=== PATIENT | male | born 1985 | race Caucasian/White ===

== ENCOUNTER 2016-10-05 08:48 | Emergency (ER) | payer OTHER ==
[2016-10-05 08:54] VITALS: BP 127/80; BMI 32.5
[2016-10-05] MEDS ORDERED: ZOFRAN INJ 4 MG VIAL IVP ONE (09:04)
[2016-10-05] MEDS ORDERED: TORADOL 30 MG VIAL IVP ONE (09:04)
[2016-10-05] MEDS ORDERED: NS 1000 ML 1,000 ML IV ONE (09:04)
--- NOTE | 2016-10-05 09:06 | DR.ABDMALE ---
HPI - Time seen Time seen: 09:00 - PCP Primary Care Physician: concepción langston - HPI comment HPI Comment: PAIN GETTING WORSE. ASSOCIATED WITH NAUSEA. - Complaint Chief Complaint Doctors Comments: RIGHT SIDED ABDOMINAL PAIN TIMES SEVERAL HOURS. Chief Complaint:: PT C/O RIGHT LOWER QUAD PAIN THAT STARTED AT 0200 AND GOT WORSE AT 0530,,, Self Treatment fo Chief Complaint: PT HAS HX RENAL STONES AND HE STATES THAT HE PASSED OUT .. - Reviewed Nurses Notes Review: Yes - Mode of arrival Mode of Arrival: Wheelchair - Timing Onset of Chief Complaint: 10/04/16 Came on: Suddenly - Duration Duration: Constant Duration: Hours - Location Location: [facility] - Severity Severity: Moderate - Quality Quality: Sharp - Context Onset: Suddenly History of: Urolithiasis - Modifying factors Worsening Factors: Nothing Improving Factors: Nothing - Associated signs and symptoms Associated Signs and Symptoms: Nausea, Vomiting PMH - PMH Past Medical History: No Past Surgical History: No - Family History History of Family Medical Conditions: Yes Family Medical History: Diabetes Mellitus, Cancer, Coronary Artery Disease, Heart Failure, Hypertension - Social History Does patient currently use any type of tobacco product: No Have you used tobacco products in the last 12 months: No Type of Tobacco Use: None Does any household member use tobacco: No Alcohol Use: Rarely Do you use any recreational Drugs:: No Lives With: Family Lives Where: Home - infectious screening In the last 2 months have you had wt loss of >10#?: NO Have you had fever, night sweats or hemotysis?: No Have you traveled outside the country in the last 6 months?: No Isolation: Standard ROS - Review of Systems Constitutional: No Symptoms Reported Eyes: No Symptoms Reported ENTM: No Symptoms Reported Respiratoy: No Symptoms Reported Gastrointestinal/Abdominal: Abdominal Pain, Nausea, Vomiting Genitourinary: No Symptoms Reported Neurological: Other (LT FLANK PAIN) Musculoskeletal: No Symptoms Reported Integumentary: No Symptoms Reported Hematologic/Lymphatic: No Symptoms Reported Endocrine: No Symptoms Reported All Other Systems: Reviewed and Negative PE - Vital Signs Vital Signs: Temp Pulse Resp BP BP BP BP 10/05/16 08:51 97.5 F L 70 18 127/80 10/20/15 04:40 108/50 04/08/14 02:06 120/65 123/69 133/77 Pulse Ox 10/05/16 08:51 100 10/20/15 04:40 04/08/14 02:06 - General Limitations: No Limitations General Appearance: Alert - Head Head Exam: Normal Inspection - Eyes Eye exam: Normal Appearance - ENT ENT Exam: Normal External Ear Exam - Neck Neck Exam: Normal Inspection - Chest Chest Inspection: Symmetric Chest Wall Rise - Respiratory Respiratory Exam: Normal Lung Sounds Bilat Respiratory Exam: Bilateral Clear to Auscultation - Cardiovascular Cardiovascular Exam: Regular Rate, Normal Rhythm, Normal Heart Sounds - Abdominal Exam Abdominal Exam: Normal Inspection - Rectal Rectal Exam: Deferred - Back Back Exam: Normal Inspection - Extremeties Extremities Exam: Normal Inspection - Exam: Male: Deferred - Neurologic Neurological Exam: Alert, Oriented X3 - Skin Skin Exam: Normal Color MDM - Additional Information Obtained From Additional information provided by: Family - Differential Diagnosis Differential Diagnosis: Urinary obstruction, Urinary tract infection, Urolithiasis Course - Treatment Treatment: SEE ORDERS. PAIN MED AND IVPB NS IN ED. - Education/Counseling Education/Counseling: Patient, Family, Education Educated On: Treatment, Diagnosis, Needs for Follow Up ROR - Labs Reviewed Laboratory Results Reviewed?: Yes Result Diagrams: 10/05/16 09:13 10/05/16 09:13 Laboratory: WBC 7.2 X10^3/uL (3.6-10.0) 10/05/16 09:13 RBC 4.75 X10^6/uL (4.7-6.0) 10/05/16 09:13 Hgb 14.7 g/dL (13.5-18.0) 10/05/16 09:13 Hct 41.7 % (42.0-54.0) L 10/05/16 09:13 MCV 87.8 fL (80.0-100.0) 10/05/16 09:13 MCH 31.0 pg (27.0-34.0) 10/05/16 09:13 MCHC 35.3 g/dL (33.0-35.0) H 10/05/16 09:13 RDW 12.8 % (11.6-16.5) 10/05/16 09:13 Plt Count 232 X10^3/uL (150.0-450.0) 10/05/16 09:13 MPV 8.1 fL (7.4-11.0) 10/05/16 09:13 Neut % 71.2 % (42.0-75.0) 10/05/16 09:13 Lymph % 20.0 % (21.0-51.0) L 10/05/16 09:13 [place] % 6.5 % (0.0-13.0) 10/05/16 09:13 Eos % 1.5 % (0.9-2.9) 10/05/16 09:13 Baso % 0.8 % (0.2-1.0) 10/05/16 09:13 Neut # 5.2 x10^3/uL (2.2-4.8) H 10/05/16 09:13 Lymph # 1.4 X10^3/uL (1.3-2.9) 10/05/16 09:13 [place] # 0.5 x10^3/uL (0.3-0.8) 10/05/16 09:13 Eos # 0.1 x10^3/uL (0.0-0.2) 10/05/16 09:13 Baso # 0.1 X10^3/uL (0.0-0.1) 10/05/16 09:13 Absolute Nucleated RBC 0.1 /100WBC 10/05/16 09:13 Sodium 140 mmol/L (136-145) 10/05/16 09:13 Corrected Sodium 140 mmol/L (136-145) 10/05/16 09:13 Potassium 4.1 mmol/L (3.5-5.1) 10/05/16 09:13 Chloride 106 mmol/L (98-107) 10/05/16 09:13 Carbon Dioxide 28.2 mmol/L (21-32) 10/05/16 09:13 BUN 21 mg/dL (7-18) H 10/05/16 09:13 Creatinine 1.24 mg/dL (0.70-1.30) 10/05/16 09:13 Est GFR (MDRD) Af Amer > 60 (>60) 10/05/16 09:13 Est GFR (MDRD) Non-Af > 60 (>60) 10/05/16 09:13 Glucose 114 mg/dL (65-99) H 10/05/16 09:13 Calcium 8.5 mg/dL (8.5-10.1) 10/05/16 09:13 Corrected Calcium TNP 10/05/16 09:13 Total Bilirubin 0.40 mg/dL (0.2-1.0) 10/05/16 09:13 AST 25 Units/L (15-37) 10/05/16 09:13 ALT 59 Units/L (12-78) 10/05/16 09:13 Alkaline Phosphatase 46 Units/L (46-116) 10/05/16 09:13 Total Protein 7.3 g/dL (6.4-8.2) 10/05/16 09:13 Albumin 3.9 g/dL (3.4-5.0) 10/05/16 09:13 Globulin 3.4 g/dL (2.5-4.5) 10/05/16 09:13 Albumin/Globulin Ratio 1.1 Ratio (1.1-2.1) 10/05/16 09:13 Specimen Type Clean catch urine 10/05/16 09:05 Urine Color Yellow (YELLOW) 10/05/16 09:05 Urine Appearance Hazy (CLEAR) 10/05/16 09:05 Urine pH 6.0 (5.0 - 8.0) 10/05/16 09:05 Ur Specific [place] 1.020 (1.000-1.030) 10/05/16 09:05 Urine Protein 1+ (NEGATIVE) 10/05/16 09:05 Urine Glucose (UA) Negative (NEGATIVE) 10/05/16 09:05 Urine Ketones Negative (NEGATIVE) 10/05/16 09:05 Urine Occult Blood 5+ (NEGATIVE) 10/05/16 09:05 Urine Nitrite Negative (NEGATIVE) 10/05/16 09:05 Urine Bilirubin Negative (NEGATIVE) 10/05/16 09:05 Urine Urobilinogen Normal (NORMAL) 10/05/16 09:05 Ur Leukocyte Esterase Negative (NEGATIVE) 10/05/16 09:05 Urine RBC 11-20 /HPF (NEGATIVE) 10/05/16 09:05 Urine WBC 0-2 /HPF (NEGATIVE) 10/05/16 09:05 Ur Squamous Epith Cells Negative /HPF (NEGATIVE) 10/05/16 09:05 Urine Bacteria Trace /HPF (NEGATIVE) 10/05/16 09:05 Urine Mucus Few /HPF (NEGATIVE) 10/05/16 09:05 Ur Culture Indicated? No/not indicated 10/05/16 09:05 - XRAY XRAY Findings: REPORT DISCUSS WITH PATIENT. - Diagnosis Discharge Problem: Kidney stone on right side, Abdominal pain - Discharge Plan Disposition: HOME, SELF-CARE Condition: Stable Prescriptions: Hydrocodone-Acet 5 mg/325 mg [[place] 5/325 mg Tab] 1 tab PO Q6H PRN #15 tab PRN Reason: Pain Ketorolac Tromethamine [Toradol Tab] 10 mg PO Q8H PRN #15 tab PRN Reason: Pain Tamsulosin HCl [Flomax] 0.4 mg PO DAILY #10 cap - Follow ups/Referrals Follow ups/Referrals: MARYANN LANGSTON [Primary Care Provider] - 2 days - Instructions Instructions: Kidney Stones, [id number], Abdominal Pain, Adult, [facility]-vi-Afdi Additional Instructions: RETURN TO ED IF WORSE.
[2016-10-05] MEDS ORDERED: ZOFRAN INJ 4 MG VIAL ONE (09:22)
[2016-10-05] MEDS ORDERED: NS 1000 ML 1,000 ML ONE (09:22)
[2016-10-05] MEDS ORDERED: TORADOL 30 MG VIAL ONE (09:23)
[2016-10-05 09:26] LABS: BILIRUBIN,URINE NEGATIVE (NEGATIVE); BLOOD/HEMOGLOBIN,URINE 5+ (NEGATIVE); GLUCOSE, URINE NEGATIVE (NEGATIVE); KETONES,URINE NEGATIVE (NEGATIVE); LEUKOCYTE ESTERASE ,URINE NEGATIVE (NEGATIVE); NITRITES,URINE NEGATIVE (NEGATIVE); PROTEIN,URINE 1+ (NEGATIVE); UROBILINOGEN,URINE NORMAL (NORMAL)
[2016-10-05 09:27] LABS: BASOPHILS # (AUTO) 0.1 X10^3/uL (0.0-0.1); BASOPHILS % (AUTO) 0.8 % (0.2-1.0); EOSINOPHILS # (AUTO) 0.1 x10^3/uL (0.0-0.2); EOSINOPHILS % (AUTO) 1.5 % (0.9-2.9); HEMATOCRIT 41.7 % (42.0-54.0); HEMOGLOBIN 14.7 g/dL (13.5-18.0); LYMPHOCYTES # (AUTO) 1.4 X10^3/uL (1.3-2.9); MEAN CORPUSCULAR HGB CONC 35.3 g/dL (33.0-35.0); MEAN CORPUSCULAR VOLUME 87.8 fL (80.0-100.0); MEAN PLATELET VOLUME 8.1 fL (7.4-11.0); MONOCYTES # (AUTO) 0.5 x10^3/uL (0.3-0.8); MONOCYTES % (AUTO) 6.5 % (0.0-13.0); NEUTROPHILS # (AUTO) 5.2 x10^3/uL (2.2-4.8); NEUTROPHILS % (AUTO) 71.2 % (42.0-75.0); PLATELET COUNT 232 X10^3/uL (150.0-450.0); RED BLOOD COUNT 4.75 X10^6/uL (4.7-6.0); RED CELL DISTRIBUTION WIDTH 12.8 % (11.6-16.5); WHITE BLOOD COUNT 7.2 X10^3/uL (3.6-10.0)
[2016-10-05 09:33] LABS: APPEARANCE,URINE HAZY (CLEAR); BACTERIA,URINE TRACE /HPF (NEGATIVE); COLOR,URINE YELLOW (YELLOW); MUCUS,URINE FEW /HPF (NEGATIVE); SQUAMOUS EPITHELIAL CELL,UR NEGATIVE /HPF (NEGATIVE)
[2016-10-05 09:35] LABS: ALANINE AMINOTRANSFERASE 59 Units/L (12-78); ALBUMIN 3.9 g/dL (3.4-5.0); ALKALINE PHOSPHATASE 46 Units/L (46-116); ASPARTATE AMINO TRANSFERASE 25 Units/L (15-37); BLOOD UREA NITROGEN 21 mg/dL (7-18); CALCIUM 8.5 mg/dL (8.5-10.1); CARBON DIOXIDE 28.2 mmol/L (21-32); CHLORIDE 106 mmol/L (98-107); COR NA(FOR HYPERGLY) 140 mmol/L (136-145); CREATININE 1.24 mg/dL (0.70-1.30); GLUCOSE 114 mg/dL (65-99); SODIUM 140 mmol/L (136-145); TOTAL PROTEIN 7.3 g/dL (6.4-8.2); eGFR BLACK RACES > 60 (>60); eGFR NON BLACK RACES > 60 (>60)
--- NOTE | 2016-10-05 11:30 | CT ---
CT abdomen and pelvis without contrast Indication: Abdominal pain, history of kidney stones Technique: Helical CT images of the abdomen and pelvis were obtained without IV contrast. Reformatted images in the coronal and sagittal planes were also generated for review. Comparison: October 20, 2015 Findings: Visualized lung bases are clear. No aggressive osseous lesions are identified. There is very mild dilation of the right ureter, secondary to a 1-2 mm stone at the right ureterovesi cular junction (image 30, series 3). An additional punctate nonobstructing stone is present within th e mid right kidney (best appreciated on coronal image 35, series 6). No additional radiopaque urinary tract calculi are identified at any level and there is no current evidence of harpreet hydroureteroneph rosis. Within the limits of a noncontrast exam, the liver, gallbladder, spleen, pancreas, adrenals, GI tract , including the appendix, IVC, abdominal aorta and prostate are normal. No free air, free fluid or ly mphadenopathy is identified. Impression: 1. Very mild dilation of the right ureter, secondary to a 1-2 mm stone at the right ureterovesicular junction. No harpreet hydroureteronephrosis is appreciated, at this time. 2. Additional punctate, nonobstructing right renal stone. Reported By:
[2016-10-06] MEDS ORDERED: FLOMAX PO ONE (12:16)
== END 2016-10-05 12:26 | disposition home or self-care (01) ==
LOC: ER 08:56
DX: N20.0 Calculus of kidney (principal); R10.31 Right lower quadrant pain
CPT/HCPCS: 36415; 74176; 80053; 81001; 85025; 96365; 96374; 96375; 99283; A4222; J1885; J2405